=== PATIENT | female | born 1965 | race Asian ===

== ENCOUNTER 2022-11-08 03:58 | Day surgery (SDC) | payer OTHER ==
[2022-11-03 14:48] VITALS: BMI 25.7
[2022-11-08] MEDS ORDERED: BUPIVACAINE LIPOSOME/PF (EXPAREL) 266 MG/20 ML VIAL ONE (10:01)
[2022-11-08] MEDS ORDERED: MIDAZOLAM HCL 2 MG/2 ML SINGLE DOSE VIAL ONE ×2 (10:03→10:46)
[2022-11-08] MEDS ORDERED: SODIUM CHLORIDE 0.9% P/F 10 ML VIAL IJ ONE (10:03)
[2022-11-08] MEDS ORDERED: PROPOFOL 20 ML ONE ×2 (11:15→12:08)
[2022-11-08] MEDS ORDERED: ceFAZolin SODIUM 1 GM VIAL ONE ×2 (11:26)
[2022-11-08] MEDS ORDERED: ceFAZolin SODIUM 1 GM VIAL IVPB ONE (11:27)
[2022-11-08] MEDS ORDERED: ONDANSETRON 4 MG/2 ML VIAL ONE (11:28)
[2022-11-08] MEDS ORDERED: DEXAMETHASONE SOD PHOSPHATE 4 MG/1 ML VIAL ONE (11:28)
[2022-11-08] MEDS ORDERED: ONDANSETRON 4 MG/2 ML VIAL IVPUSH PRN (13:01)
[2022-11-08] MEDS ORDERED: oxyCODONE HCL 5 MG TABLET PO PRN ×2 (13:01)
[2022-11-08] MEDS ORDERED: ACETAMINOPHEN 325 MG TABLET (FP) PO PRN (13:01)
[2022-11-08] MEDS ORDERED: LACTATED RINGERS SOLUTION 1,000 ML IV SCH (13:15)
[2022-11-08 15:23] VITALS: RESP 20; TEMP 97.6
[2022-11-08 17:34] VITALS: BP 127/69; PULSE 65
== END 2022-11-08 18:00 | disposition home or self-care (01) ==
LOC: JASU-SURG 03:58
PROVIDERS: ATTEND Orthopaedic Surgery
PROC: 0SBD4ZZ Excision of Left Knee Joint, Percutaneous Endoscopic Approach (ICD-10-PCS; 2022-11-08)
PROC: 0LU Tendons, Supplement (ICD-10-PCS; principal; 2022-11-08 11:00)
DX: S83.512A Sprain of anterior cruciate ligament of left knee, initial encounter (principal); S83.242A Other tear of medial meniscus, current injury, left knee, initial encounter; X58.XXXA Exposure to other specified factors, initial encounter; Y93.9 Activity, unspecified; Y92.9 Unspecified place or not applicable; Y99.9 Unspecified external cause status
CPT/HCPCS: 29881; 29888; C1713; 94760